=== PATIENT | male | born 1970 | race Caucasian/White ===

== ENCOUNTER 2017-06-29 12:11 | Inpatient (IN) | payer MEDICARE, MEDICAID ==
[~2017-06-29] VITALS: Ht 170.2 cm; Wt 88.1 kg
[~2017-06-29 12:11] MED LIST: ERTA1VIA IV; HYDR-3138 PO; HYDR-3240 PO; MULT-484 PO; OXYC1TAB7 PO; SENN1TAB7 PO
[2017-06-29] MEDS ORDERED: SULFAMETH./TRIMETHOPRIM DS 800MG/160MG TABLET PO ONE (13:00)
[2017-06-29] MEDS ORDERED: SODIUM CHLORIDE 0.9% 1,000ML IVBOLUS ONE ×3 (13:00→14:30)
[2017-06-29] MEDS ORDERED: CEFAZOLIN PMX 1GM/50ML 50 ML IV ONE (13:00)
[2017-06-29] MEDS ORDERED: SODIUM CHLORIDE FLUSH 10ML SYR IVF ONE (13:00)
[2017-06-29 13:09] LABS: HEMOGLOBIN 16.8 g/dL (13.7-18.0); WHITE BLOOD COUNT 14.5 x10^3/uL (3.4-10)
[2017-06-29] MEDS ORDERED: MORPHINE SULFATE 4 MG/ML, 1ML ONE ×2 (13:16→16:40)
[2017-06-29] MEDS ORDERED: SULFAMETH./TRIMETHOPRIM DS 800MG/160MG TABLET ONE (13:16)
[2017-06-29] MEDS ORDERED: CEFAZOLIN PMX 1GM/50ML 50 ML ONE (13:16)
[2017-06-29 13:21] LABS: BLOOD UREA NITROGEN 16 mg/dL (7-18)
[2017-06-29] MEDS: MORPHINE SULFATE 4 MG/ML, 1ML IV PRN ×2 (13:22→16:42)
[2017-06-29 13:25] LABS: ASPARTATE AMINO TRANSFERASE 50 U/L (15-37)
[2017-06-29] MEDS ORDERED: VANCOMYCIN 1,600 MG in SODIUM CHLORIDE 0.9% 250 ML IV ONE (14:00)
[2017-06-29] MEDS ORDERED: CEFTRIAXONE PMX 1GM/50ML 50 ML IV ONE (14:00)
[2017-06-29] MEDS ORDERED: VANCOMYCIN PER PHARMACY MC ONE (14:00)
[2017-06-29] MEDS ORDERED: DEXAMETHASONE 4 MG/ML, 1ML ONE (14:07)
[2017-06-29] MEDS ORDERED: CEFTRIAXONE PMX 1GM/50ML 50 ML ONE (14:40)
[2017-06-29] MEDS ORDERED: CLINDAMYCIN PMX 600MG/50ML 50 ML IV SCH (17:30)
[2017-06-29] MEDS ORDERED: TEMAZEPAM 15 MG CAPSULE PO PRN (17:30)
[2017-06-29] MEDS ORDERED: ONDANSETRON 2MG/ML, 2ML IVPush PRN (17:30)
[2017-06-29] MEDS ORDERED: ACETAMINOPHEN 325 MG TABLET PO PRN (17:30)
[2017-06-29] MEDS ORDERED: PHARMACY INSTRUCTION MC SCH (17:30)
[2017-06-29] MEDS ORDERED: morphine SULFATE 10 MG/ML, 1ML IVPush PRN (17:30)
[2017-06-29] MEDS: SODIUM CHLORIDE 0.9% 1,000 ML IV SCH (17:50)
[2017-06-29 17:52] VITALS: BP 106/75
[2017-06-29 18:07] LABS: DAU SCREEN DISCLAIMER
[2017-06-29] MEDS: NICOTINE 21 MG/24 HR PATCH.TD24 TD SCH (20:35)
[2017-06-29] MEDS: HYDROcodone/APAP 5/325 TABLET PO PRN (20:35)
[2017-06-29] MEDS: SULFAMETH./TRIMETHOPRIM 20 ML in DEXTROSE 5% 500 ML IV SCH (20:35)
[2017-06-29] MEDS ORDERED: SULFAMETH./TRIMETHOPRIM 20 ML in DEXTROSE 5% 500 ML IV SCH (21:00)
[2017-06-30] MEDS: HYDROcodone/APAP 5/325 TABLET PO PRN ×6 (01:29→22:38)
[2017-06-30 01:30] VITALS: BP 109/76
[2017-06-30] MEDS: SODIUM CHLORIDE 0.9% 1,000 ML IV SCH ×3 (01:30→20:13)
[2017-06-30 05:03] LABS: HEMATOCRIT 41.5 % (39.2-51.8); HEMOGLOBIN 13.9 g/dL (13.7-18.0); WHITE BLOOD COUNT 10.3 x10^3/uL (3.4-10)
[2017-06-30 05:08] LABS: ASPARTATE AMINO TRANSFERASE 55 U/L (15-37); BLOOD UREA NITROGEN 13 mg/dL (7-18)
[2017-06-30] MEDS: SULFAMETH./TRIMETHOPRIM 20 ML in DEXTROSE 5% 500 ML IV SCH ×2 (06:48→16:24)
[2017-06-30 09:06] VITALS: BP 103/64
[2017-06-30 15:18] VITALS: BP 110/71
[2017-06-30 20:14] VITALS: BP 108/74
[2017-06-30] MEDS: NICOTINE 21 MG/24 HR PATCH.TD24 TD SCH (20:39)
[2017-07-01] MEDS: SULFAMETH./TRIMETHOPRIM 20 ML in DEXTROSE 5% 500 ML IV SCH ×3 (00:35→16:50)
[2017-07-01] MEDS: HYDROcodone/APAP 5/325 TABLET PO PRN ×6 (02:05→22:51)
[2017-07-01 02:21] VITALS: BP 101/59
[2017-07-01 04:57] LABS: HEMATOCRIT 40.5 % (39.2-51.8); HEMOGLOBIN 13.4 g/dL (13.7-18.0); WHITE BLOOD COUNT 7.9 x10^3/uL (3.4-10)
[2017-07-01] MEDS: SODIUM CHLORIDE 0.9% 1,000 ML IV SCH ×2 (05:51→16:21)
[2017-07-01 07:55] VITALS: BP 98/58
[2017-07-01 13:50] VITALS: BP 110/76
[2017-07-01 19:41] VITALS: BP 108/71
[2017-07-01] MEDS: NICOTINE 21 MG/24 HR PATCH.TD24 TD SCH (22:00)
[2017-07-02] MEDS: SULFAMETH./TRIMETHOPRIM 20 ML in DEXTROSE 5% 500 ML IV SCH ×3 (00:41→16:04)
[2017-07-02] MEDS: SODIUM CHLORIDE 0.9% 1,000 ML IV SCH ×2 (00:43→14:01)
[2017-07-02] MEDS: HYDROcodone/APAP 5/325 TABLET PO PRN ×5 (03:11→20:13)
[2017-07-02 03:34] VITALS: BP 105/61
[2017-07-02 07:38] VITALS: BP 109/70
[2017-07-02 13:37] VITALS: BP 111/72
[2017-07-02 19:29] VITALS: BP 104/64
[2017-07-02] MEDS: NICOTINE 21 MG/24 HR PATCH.TD24 TD SCH (20:13)
[2017-07-03] MEDS: SODIUM CHLORIDE 0.9% 1,000 ML IV SCH ×4 (00:02→20:34)
[2017-07-03] MEDS: SULFAMETH./TRIMETHOPRIM 20 ML in DEXTROSE 5% 500 ML IV SCH ×3 (00:04→16:14)
[2017-07-03] MEDS: HYDROcodone/APAP 5/325 TABLET PO PRN ×6 (00:04→22:17)
[2017-07-03 02:22] VITALS: BP 112/70
[2017-07-03 06:30] VITALS: BP 103/64
[2017-07-03 13:29] VITALS: BP 113/66
[2017-07-03 19:23] VITALS: BP 94/61
[2017-07-03] MEDS: NICOTINE 21 MG/24 HR PATCH.TD24 TD SCH (20:34)
[2017-07-04] MEDS: SULFAMETH./TRIMETHOPRIM 20 ML in DEXTROSE 5% 500 ML IV SCH ×3 (01:06→17:37)
[2017-07-04 02:19] VITALS: BP 101/62
[2017-07-04] MEDS: HYDROcodone/APAP 5/325 TABLET PO PRN ×6 (02:27→23:48)
[2017-07-04] MEDS: SODIUM CHLORIDE 0.9% 1,000 ML IV SCH ×3 (06:15→23:48)
[2017-07-04 08:50] VITALS: BP 113/71
[2017-07-04 13:36] VITALS: BP 95/60
[2017-07-04] MEDS ORDERED: ACETAMINOPHEN 325 MG TABLET PO PRN (16:30)
[2017-07-04] MEDS ORDERED: ONDANSETRON 2MG/ML, 2ML IVPush PRN (16:30)
[2017-07-04] MEDS ORDERED: PHARMACY INSTRUCTION MC SCH (16:30)
[2017-07-04 18:54] VITALS: BP 101/58
[2017-07-04] MEDS: NICOTINE 21 MG/24 HR PATCH.TD24 TD SCH (19:35)
[2017-07-05] MEDS: SULFAMETH./TRIMETHOPRIM 20 ML in DEXTROSE 5% 500 ML IV SCH ×3 (01:09→22:47)
[2017-07-05 01:20] VITALS: BP 102/56
[2017-07-05] MEDS: morphine SULFATE 10 MG/ML, 1ML IVPush PRN ×4 (04:44→12:57)
[2017-07-05 07:30] VITALS: BP 97/61
[2017-07-05] MEDS: SODIUM CHLORIDE 0.9% 1,000 ML IV SCH ×2 (08:47→16:00)
[2017-07-05] MEDS ORDERED: LIDOCAINE 1%-EPI 1:100K, 20ML INFIL STA (11:32)
[2017-07-05] MEDS: HYDROcodone/APAP 5/325 TABLET PO PRN ×3 (12:57→22:32)
[2017-07-05 14:15] VITALS: BP 109/68
[2017-07-05 20:00] VITALS: BP 109/75
[2017-07-05] MEDS: NICOTINE 21 MG/24 HR PATCH.TD24 TD SCH (22:31)
[2017-07-06 02:00] VITALS: BP 97/60
[2017-07-06] MEDS: HYDROcodone/APAP 5/325 TABLET PO PRN ×5 (03:28→22:04)
[2017-07-06] MEDS: SULFAMETH./TRIMETHOPRIM 20 ML in DEXTROSE 5% 500 ML IV SCH ×3 (06:43→22:09)
[2017-07-06 08:13] VITALS: BP 96/62
[2017-07-06] MEDS: SODIUM CHLORIDE 0.9% 1,000 ML IV SCH ×3 (09:45→18:02)
[2017-07-06 13:51] VITALS: BP 94/56
[2017-07-06 20:24] VITALS: BP 100/61
[2017-07-06] MEDS: NICOTINE 21 MG/24 HR PATCH.TD24 TD SCH (20:30)
[2017-07-07 03:16] VITALS: BP 108/65
[2017-07-07] MEDS: HYDROcodone/APAP 5/325 TABLET PO PRN (04:28)
[2017-07-07 07:35] VITALS: BP 101/64
[2017-07-07] MEDS: SULFAMETH./TRIMETHOPRIM 20 ML in DEXTROSE 5% 500 ML IV SCH ×2 (07:35→14:49)
[2017-07-07] MEDS: SODIUM CHLORIDE 0.9% 1,000 ML IV SCH (07:35)
[2017-07-07 13:36] VITALS: BP 108/70
[2017-07-07] MEDS ORDERED: TRAM50TA2 PO (14:50)
[2017-07-07] MEDS ORDERED: NICO1PAT5 TD (14:50)
[2017-07-07] MEDS ORDERED: SULF1TAB24 PO (14:50)
[2017-07-07] MEDS ORDERED: SULFAMETH./TRIMETHOPRIM DS 800MG/160MG TABLET PO ONE (16:00)
== END 2017-07-07 15:38 | disposition home or self-care (01) | DRG 854 ==
LOC: ED 14:48 → EDIP 15:49 → 3NW 18:00 → 4NOR 07-04 15:38
PROVIDERS: ADMIT Internal Medicine; ATTEND Internal Medicine
PROC: 0JBH0ZZ Excision of Left Lower Arm Subcutaneous Tissue and Fascia, Open Approach (ICD-10-PCS; principal; 2017-07-05)
DX: A41.9 Sepsis, unspecified organism (principal); L02.414 Cutaneous abscess of left upper limb; L03.114 Cellulitis of left upper limb; T78.2XXA Anaphylactic shock, unspecified, initial encounter; B95.61 Methicillin susceptible Staphylococcus aureus infection as the cause of diseases classified elsewhere; I34.0 Nonrheumatic mitral (valve) insufficiency; Z88.0 Allergy status to penicillin; Z90.49 Acquired absence of other specified parts of digestive tract; Z86.14 Personal history of Methicillin resistant Staphylococcus aureus infection; Z72.0 Tobacco use
CPT/HCPCS: 36415; 80053; 80307; 83605; 83735; 84100; 84145; 85025; 85610; 87040; 87070; 87077; 87186; 87205; 93005; 93306; 96365; 96366; 96368; 96375; 96376; J0690; J0696; J2270; J7030; J7060

== ENCOUNTER 2019-04-22 14:00 | Inpatient (IN) | payer MEDICARE, MEDICAID ==
[~2019-04-22] VITALS: Ht 167.6 cm; Wt 97.2 kg
[~2019-04-22 14:00] MED LIST changes: +ASPI-650 PO; +ATOR40TA78 PO; +CARV3.1212 PO; +FOLI-17 PO; -HYDR-3138 PO; +HYDR-3237 PO; +HYDR50TA13 PO; +MULT1TAB60 PO; +NICO-487 TD; +SENN-177 PO; -SENN1TAB7 PO; +SULF1TAB24 PO; +THIA100T67 PO; +TRAM50TA2 PO
--- NOTE | 2019-04-22 14:28 | NUR ---
First contact with pt. Pt c/o SOB, abd swelling and swelling in bilat legts since Thursday night. Pt states just released from hospital on Thursday for same, states was following up with basket machine operator today and sent in to ED. Pt speaking in 3-4 word sentences, resp rapid but unlabored. Pt placed in gown, positioned for comfort in bed with warm blanket. Continuous heart, oxygen and BP Monitors applied, all safety measures observed.
[2019-04-22 14:47] LABS: ALBUMIN 3.4 g/dL (3.4-5.0); ANION GAP 11 mmol/L (5-15); CALCIUM 8.3 mg/dL (8.5-10.1); CHLORIDE 101 mmol/L (98-107)
[2019-04-22 14:51] LABS: BASOPHILS # (AUTO) 0.05 x10^3/uL (0-0.1); BASOPHILS % (AUTO) 0 % (0-1); EOSINOPHILS # (AUTO) 0.04 x10^3/uL (0-0.4); EOSINOPHILS % (AUTO) 0 % (1-7); LYMPHOCYTES # (AUTO) 2.35 x10^3/uL (1-3.4); LYMPHOCYTES % (AUTO) 16 % (22-44); MD NO; MEAN CORPUSCULAR HEMOGLOBIN 31.4 pg (27.5-34.5); MEAN CORPUSCULAR HGB CONC 31.8 g/dL (33.2-36.2); MEAN CORPUSCULAR VOLUME 98.7 fL (81-97); MEAN PLATELET VOLUME 8.9 fL (7.4-10.4); MONOCYTES # (AUTO) 1.24 x10^3/uL (0.2-0.8); MONOCYTES % (AUTO) 9 % (2-9); NEUTROPHILS # (AUTO) 10.67 x10^3/uL (1.8-6.8); NEUTROPHILS % (AUTO) 74 % (42-75); PLATELET COUNT 261 x10^3/uL (130-400); RED BLOOD COUNT 4.32 x10^6/uL (4.38-5.82); RED CELL DISTRIBUTION WIDTH 15.3 % (9.4-14.8)
[2019-04-22 14:52] LABS: ALANINE AMINOTRANSFERASE 295 U/L (12-78); ALKALINE PHOSPHATASE 95 U/L (45-117); BILIRUBIN,TOTAL 1.5 mg/dL (0.2-1.0); CREATININE 1.74 mg/dL (0.7-1.3); TOTAL PROTEIN 6.7 g/dL (6.4-8.2); TROPONIN I 0.053 ng/mL (0.000-0.045)
[2019-04-22] MEDS ORDERED: FUROSEMIDE 20 MG/2 ML ONE (14:59)
[2019-04-22] MEDS ORDERED: FUROSEMIDE 40 MG/4 ML IV ONE (15:00)
--- NOTE | 2019-04-22 15:18 | NUR ---
Pt medicated per MAR, denies other needs.
--- NOTE | 2019-04-22 15:58 | NUR ---
Pt given ice chips per request, denies other needs.
[2019-04-22] MEDS ORDERED: hydrOXyzine 50MG TABLET PO PRN (16:30)
[2019-04-22] MEDS ORDERED: HEPARIN 5,000 UNITS/ML, 1ML SQ SCH (16:30)
--- NOTE | 2019-04-22 16:41 | NUR ---
Report called to [facility] RN on card tele. Floor ready for pt transport.
[2019-04-22] MEDS ORDERED: FUROSEMIDE 20 MG/2 ML IV SCH ×2 (17:00→21:00)
[2019-04-22 17:08] LABS: TROPONIN I 0.049 ng/mL (0.000-0.045)
[2019-04-22 17:33] VITALS: BP 105/74
[2019-04-22] MEDS: CARVEDILOL 3.125 MG TABLET PO SCH (18:07)
[2019-04-22 18:37] LABS: MICROSCOPIC AUTO
[2019-04-22 18:43] LABS: CULTURE INDICATED? NO
[2019-04-22 19:41] VITALS: BP 110/73
[2019-04-22] MEDS: ATORVASTATIN 40 MG TABLET PO SCH (20:10)
[2019-04-22 22:58] LABS: TROPONIN I 0.059 ng/mL (0.000-0.045)
[2019-04-23 01:33] VITALS: BP 99/51
[2019-04-23 04:51] LABS: MEAN CORPUSCULAR HGB CONC 32.5 g/dL (33.2-36.2); MEAN CORPUSCULAR VOLUME 98.5 fL (81-97); MEAN PLATELET VOLUME 9.1 fL (7.4-10.4); PLATELET COUNT 258 x10^3/uL (130-400); RED BLOOD COUNT 4.27 x10^6/uL (4.38-5.82); RED CELL DISTRIBUTION WIDTH 15.3 % (9.4-14.8)
[2019-04-23 05:00] LABS: ALBUMIN 3.3 g/dL (3.4-5.0); ANION GAP 12 mmol/L (5-15); CALCIUM 8.2 mg/dL (8.5-10.1); CHLORIDE 102 mmol/L (98-107)
[2019-04-23 05:05] LABS: ALANINE AMINOTRANSFERASE 263 U/L (12-78); ALKALINE PHOSPHATASE 100 U/L (45-117); BILIRUBIN,TOTAL 1.2 mg/dL (0.2-1.0); CREATININE 1.86 mg/dL (0.7-1.3); TOTAL PROTEIN 6.7 g/dL (6.4-8.2)
[2019-04-23 05:12] LABS: BASOPHILS # (AUTO) 0.08 x10^3/uL (0-0.1); BASOPHILS % (AUTO) 1 % (0-1); EOSINOPHILS # (AUTO) 0.09 x10^3/uL (0-0.4); EOSINOPHILS % (AUTO) 1 % (1-7); LYMPHOCYTES # (AUTO) 3.15 x10^3/uL (1-3.4); LYMPHOCYTES % (AUTO) 23 % (22-44); MD SCAN; MONOCYTES # (AUTO) 0.73 x10^3/uL (0.2-0.8); MONOCYTES % (AUTO) 5 % (2-9); NEUTROPHILS # (AUTO) 9.92 x10^3/uL (1.8-6.8); NEUTROPHILS % (AUTO) 71 % (42-75)
[2019-04-23 05:42] VITALS: BP 95/66
[2019-04-23] MEDS: CARVEDILOL 3.125 MG TABLET PO SCH ×2 (05:43→17:45)
[2019-04-23] MEDS: ASPIRIN 325 MG TABLET EC PO SCH (05:43)
[2019-04-23 08:35] VITALS: BP 102/75
[2019-04-23 08:36] LABS: INTERNATIONAL NORMALIZED RATIO 1.62 (0.93-1.1); PROTHROMBIN TIME 16.7 Seconds (9.6-11.5)
[2019-04-23] MEDS: FOLIC ACID 1 MG TABLET PO SCH (09:12)
[2019-04-23] MEDS: THIAMINE 100MG TABLET PO SCH (09:12)
[2019-04-23] MEDS: MULTIVITAMIN 1 TABLET PO SCH (09:12)
[2019-04-23] MEDS: FUROSEMIDE 20 MG/2 ML IV SCH ×3 (09:12→21:42)
[2019-04-23] MEDS ORDERED: FUROSEMIDE 20 MG/2 ML IV SCH (11:00)
[2019-04-23] MEDS: DIGOXIN 0.125 MG TABLET PO SCH (11:32)
[2019-04-23 12:39] VITALS: BP 97/71
[2019-04-23 17:43] VITALS: BP 106/76
[2019-04-23 18:31] VITALS: BP 104/74
[2019-04-23] MEDS: ATORVASTATIN 40 MG TABLET PO SCH (21:42)
[2019-04-24 01:48] VITALS: BP 94/61
[2019-04-24 05:45] VITALS: BP 94/66
[2019-04-24] MEDS: CARVEDILOL 3.125 MG TABLET PO SCH ×2 (05:46→16:44)
[2019-04-24] MEDS: FUROSEMIDE 20 MG/2 ML IV SCH ×4 (05:46→21:16)
[2019-04-24] MEDS: ASPIRIN 325 MG TABLET EC PO SCH (05:46)
[2019-04-24 07:22] VITALS: BP 101/68
[2019-04-24] MEDS: THIAMINE 100MG TABLET PO SCH (07:53)
[2019-04-24] MEDS: DIGOXIN 0.125 MG TABLET PO SCH (07:53)
[2019-04-24] MEDS: FOLIC ACID 1 MG TABLET PO SCH (07:53)
[2019-04-24] MEDS: MULTIVITAMIN 1 TABLET PO SCH (07:53)
[2019-04-24 08:32] LABS: BASOPHILS # (AUTO) 0.05 x10^3/uL (0-0.1); BASOPHILS % (AUTO) 1 % (0-1); EOSINOPHILS # (AUTO) 0.14 x10^3/uL (0-0.4); EOSINOPHILS % (AUTO) 1 % (1-7); LYMPHOCYTES # (AUTO) 2.51 x10^3/uL (1-3.4); LYMPHOCYTES % (AUTO) 25 % (22-44); MD NO; MEAN CORPUSCULAR HEMOGLOBIN 31.8 pg (27.5-34.5); MEAN CORPUSCULAR HGB CONC 31.8 g/dL (33.2-36.2); MEAN PLATELET VOLUME 8.5 fL (7.4-10.4); MONOCYTES # (AUTO) 0.68 x10^3/uL (0.2-0.8); MONOCYTES % (AUTO) 7 % (2-9); NEUTROPHILS # (AUTO) 6.76 x10^3/uL (1.8-6.8); NEUTROPHILS % (AUTO) 67 % (42-75); PLATELET COUNT 249 x10^3/uL (130-400); RED BLOOD COUNT 4.28 x10^6/uL (4.38-5.82); RED CELL DISTRIBUTION WIDTH 15.5 % (9.4-14.8)
[2019-04-24 08:39] LABS: ALBUMIN 3.4 g/dL (3.4-5.0); ANION GAP 9 mmol/L (5-15); CALCIUM 8.4 mg/dL (8.5-10.1); CHLORIDE 102 mmol/L (98-107)
[2019-04-24 08:43] LABS: ALANINE AMINOTRANSFERASE 236 U/L (12-78); ALKALINE PHOSPHATASE 99 U/L (45-117); CREATININE 1.56 mg/dL (0.7-1.3); TOTAL PROTEIN 6.6 g/dL (6.4-8.2)
[2019-04-24 14:17] VITALS: BP 100/68
[2019-04-24] MEDS: FONDAPARINUX 2.5 MG/0.5 ML SQ SCH (16:48)
[2019-04-24 21:08] VITALS: BP 98/64
[2019-04-24] MEDS: ATORVASTATIN 40 MG TABLET PO SCH (21:17)
[2019-04-25 02:12] VITALS: BP 92/62
[2019-04-25] MEDS: CARVEDILOL 3.125 MG TABLET PO SCH ×2 (05:50→17:06)
[2019-04-25] MEDS: FUROSEMIDE 20 MG/2 ML IV SCH ×4 (05:50→22:06)
[2019-04-25] MEDS: ASPIRIN 325 MG TABLET EC PO SCH (05:50)
[2019-04-25 06:04] LABS: BASOPHILS # (AUTO) 0.03 x10^3/uL (0-0.1); BASOPHILS % (AUTO) 0 % (0-1); EOSINOPHILS % (AUTO) 1 % (1-7); LYMPHOCYTES # (AUTO) 1.87 x10^3/uL (1-3.4); LYMPHOCYTES % (AUTO) 21 % (22-44); MD NO; MEAN CORPUSCULAR HEMOGLOBIN 32.3 pg (27.5-34.5); MEAN CORPUSCULAR HGB CONC 32.3 g/dL (33.2-36.2); MEAN CORPUSCULAR VOLUME 100.2 fL (81-97); MEAN PLATELET VOLUME 8.6 fL (7.4-10.4); MONOCYTES # (AUTO) 0.48 x10^3/uL (0.2-0.8); MONOCYTES % (AUTO) 6 % (2-9); NEUTROPHILS # (AUTO) 6.35 x10^3/uL (1.8-6.8); NEUTROPHILS % (AUTO) 72 % (42-75); PLATELET COUNT 231 x10^3/uL (130-400); RED BLOOD COUNT 3.95 x10^6/uL (4.38-5.82); RED CELL DISTRIBUTION WIDTH 15.8 % (9.4-14.8)
[2019-04-25 06:34] LABS: ALBUMIN 3.2 g/dL (3.4-5.0); ANION GAP 8 mmol/L (5-15); CALCIUM 8.1 mg/dL (8.5-10.1); CHLORIDE 103 mmol/L (98-107)
[2019-04-25 06:42] LABS: ALANINE AMINOTRANSFERASE 200 U/L (12-78); ALKALINE PHOSPHATASE 85 U/L (45-117); BILIRUBIN,TOTAL 1.2 mg/dL (0.2-1.0); CREATININE 1.16 mg/dL (0.7-1.3); TOTAL PROTEIN 6.5 g/dL (6.4-8.2)
[2019-04-25] MEDS: MULTIVITAMIN 1 TABLET PO SCH (09:08)
[2019-04-25] MEDS: POTASSIUM CHLORIDE 20 MEQ TAB.ER.PRT PO SCH ×2 (09:08→17:06)
[2019-04-25] MEDS: FOLIC ACID 1 MG TABLET PO SCH (09:08)
[2019-04-25] MEDS: DIGOXIN 0.125 MG TABLET PO SCH (09:09)
[2019-04-25] MEDS: FONDAPARINUX 2.5 MG/0.5 ML SQ SCH (09:09)
[2019-04-25] MEDS: THIAMINE 100MG TABLET PO SCH (09:09)
[2019-04-25 09:17] VITALS: BP 106/72
[2019-04-25 14:15] VITALS: BP 98/63
[2019-04-25 19:46] VITALS: BP 92/62
[2019-04-25] MEDS: ATORVASTATIN 40 MG TABLET PO SCH (22:06)
[2019-04-26 00:37] VITALS: BP 104/71
[2019-04-26] MEDS: ASPIRIN 325 MG TABLET EC PO SCH (05:48)
[2019-04-26] MEDS: CARVEDILOL 3.125 MG TABLET PO SCH (05:48)
[2019-04-26] MEDS: FUROSEMIDE 20 MG/2 ML IV SCH (05:52)
[2019-04-26 08:19] VITALS: BP 99/68
[2019-04-26 08:26] LABS: ALBUMIN 3.3 g/dL (3.4-5.0); ANION GAP 8 mmol/L (5-15); CALCIUM 8.2 mg/dL (8.5-10.1); CHLORIDE 105 mmol/L (98-107)
[2019-04-26 08:31] LABS: ALANINE AMINOTRANSFERASE 180 U/L (12-78); ALKALINE PHOSPHATASE 87 U/L (45-117); CREATININE 1.06 mg/dL (0.7-1.3); TOTAL PROTEIN 6.6 g/dL (6.4-8.2)
[2019-04-26] MEDS ORDERED: POTA20TA6 PO (08:47)
[2019-04-26] MEDS ORDERED: FURO-93 PO (08:47)
[2019-04-26] MEDS ORDERED: DIGO125T PO (08:47)
[2019-04-26] MEDS: FONDAPARINUX 2.5 MG/0.5 ML SQ SCH (09:53)
[2019-04-26] MEDS: FOLIC ACID 1 MG TABLET PO SCH (09:53)
[2019-04-26] MEDS: THIAMINE 100MG TABLET PO SCH (09:53)
[2019-04-26] MEDS: DIGOXIN 0.125 MG TABLET PO SCH (09:53)
[2019-04-26] MEDS: POTASSIUM CHLORIDE 20 MEQ TAB.ER.PRT PO SCH (09:53)
[2019-04-26] MEDS: MULTIVITAMIN 1 TABLET PO SCH (09:53)
[2019-04-26] MEDS ORDERED: POTASSIUM CHLORIDE 20 MEQ TAB.ER.PRT PO SCH (16:00)
[2019-04-27] MEDS ORDERED: POTASSIUM CHLORIDE 20 MEQ TAB.ER.PRT PO SCH (09:00)
== END 2019-04-26 11:50 | disposition home or self-care (01) | DRG 291 ==
LOC: ED 14:20 → EDIP 15:23 → 5SO 17:28
PROVIDERS: ADMIT Internal Medicine; ATTEND Internal Medicine
DX: I13.0 Hypertensive heart and chronic kidney disease with heart failure and stage 1 through stage 4 chronic kidney disease, or unspecified chronic kidney disease (principal); I50.43 Acute on chronic combined systolic (congestive) and diastolic (congestive) heart failure; N17.9 Acute kidney failure, unspecified; E87.1 Hypo-osmolality and hyponatremia; E87.2 Acidosis; B15.9 Hepatitis A without hepatic coma; I24.8 Other forms of acute ischemic heart disease; I47.2 Ventricular tachycardia; Q21.0 Ventricular septal defect; I42.0 Dilated cardiomyopathy; Z88.0 Allergy status to penicillin; Z88.8 Allergy status to other drugs, medicaments and biological substances; B19.20 Unspecified viral hepatitis C without hepatic coma; D50.9 Iron deficiency anemia, unspecified; D63.1 Anemia in chronic kidney disease; D72.829 Elevated white blood cell count, unspecified; F15.10 Other stimulant abuse, uncomplicated; I08.1 Rheumatic disorders of both mitral and tricuspid valves; I45.81 Long QT syndrome; N18.9 Chronic kidney disease, unspecified; Z72.0 Tobacco use; R73.9 Hyperglycemia, unspecified; F41.9 Anxiety disorder, unspecified
CPT/HCPCS: 36415; 71045; 80053; 81001; 83735; 83880; 84484; 85025; 85610; 85730; 93005; 96374; 99285; G0378; J1940; J1652

== ENCOUNTER → 2019-05-04 | Outpatient (CLI) | payer MEDICARE, MEDICAID ==
[~2019-05-04] MED LIST changes: +DIGO125T PO; +FURO-93 PO; +POTA20TA6 PO
[2019-05-04 11:10] LABS: ALBUMIN 3.4 g/dL (3.4-5.0); ANION GAP 6 mmol/L (5-15); CALCIUM 8.6 mg/dL (8.5-10.1); CHLORIDE 108 mmol/L (98-107)
[2019-05-04 11:14] LABS: ALANINE AMINOTRANSFERASE 84 U/L (12-78); ALKALINE PHOSPHATASE 81 U/L (45-117); BILIRUBIN,TOTAL 1.2 mg/dL (0.2-1.0); TOTAL PROTEIN 6.8 g/dL (6.4-8.2)
== END | disposition home or self-care (01) ==
LOC: LAB 10:36
PROVIDERS: ATTEND Internal Medicine Cardiovascular Disease
DX: I34.0 Nonrheumatic mitral (valve) insufficiency (principal); I95.9 Hypotension, unspecified; I13.0 Hypertensive heart and chronic kidney disease with heart failure and stage 1 through stage 4 chronic kidney disease, or unspecified chronic kidney disease; I50.23 Acute on chronic systolic (congestive) heart failure; N18.2 Chronic kidney disease, stage 2 (mild); R94.5 Abnormal results of liver function studies; Z88.0 Allergy status to penicillin; Z88.8 Allergy status to other drugs, medicaments and biological substances
CPT/HCPCS: 36415; 80053

== ENCOUNTER 2019-05-21 00:07 | Inpatient (IN) | payer MEDICARE, MEDICAID ==
[~2019-05-21] VITALS: Ht 167.6 cm; Wt 92.3 kg
[2019-05-21] MEDS ORDERED: ASPIRIN 81 MG TABLET CHEW PO ONE (01:30)
--- NOTE | 2019-05-21 01:40 | NUR ---
Care assumed. IV access obtained and labs drawn. Pt sinus tachy on monitor. Pt anxious with rapid resp. Lung sounds clear. Pt c/o increased abd distension and sudden onset SOB. Pt states he is starting to feel a little better now that he is here. Call light in reach. Ice chips given per ERP ok.
--- NOTE | 2019-05-21 01:45 | NUR ---
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
--- NOTE | 2019-05-21 01:52 | NUR ---
Xray at bedside.
[2019-05-21 02:02] LABS: BASOPHILS # (AUTO) 0.06 x10^3/uL (0-0.1); BASOPHILS % (AUTO) 0 % (0-1); EOSINOPHILS # (AUTO) 0.02 x10^3/uL (0-0.4); EOSINOPHILS % (AUTO) 0 % (1-7); LYMPHOCYTES % (AUTO) 12 % (22-44); MD NO; MEAN CORPUSCULAR HEMOGLOBIN 32.2 pg (27.5-34.5); MEAN CORPUSCULAR HGB CONC 32.4 g/dL (33.2-36.2); MEAN CORPUSCULAR VOLUME 99.5 fL (81-97); MEAN PLATELET VOLUME 9.4 fL (7.4-10.4); MONOCYTES # (AUTO) 1.12 x10^3/uL (0.2-0.8); MONOCYTES % (AUTO) 8 % (2-9); NEUTROPHILS # (AUTO) 11.01 x10^3/uL (1.8-6.8); NEUTROPHILS % (AUTO) 80 % (42-75); PLATELET COUNT 211 x10^3/uL (130-400); RED BLOOD COUNT 4.36 x10^6/uL (4.38-5.82); RED CELL DISTRIBUTION WIDTH 15.9 % (9.4-14.8)
[2019-05-21 02:08] LABS: INTERNATIONAL NORMALIZED RATIO 1.85 (0.93-1.1)
[2019-05-21 02:10] LABS: ALBUMIN 3.9 g/dL (3.4-5.0); ANION GAP 8 mmol/L (5-15); CALCIUM 8.7 mg/dL (8.5-10.1); CHLORIDE 101 mmol/L (98-107); CREATININE 1.83 mg/dL (0.7-1.3)
[2019-05-21 02:14] LABS: TROPONIN I 0.055 ng/mL (0.000-0.045)
[2019-05-21] MEDS ORDERED: FUROSEMIDE 40 MG/4 ML IV ONE (02:30)
[2019-05-21] MEDS ORDERED: FUROSEMIDE 40 MG/4 ML ONE (02:48)
[2019-05-21] MEDS ORDERED: SPIR25TA5 PO (02:57)
--- NOTE | 2019-05-21 03:03 | NUR ---
Pt medicated per JAN. Hospitalist at bedside to [facility] for admission.
[2019-05-21 03:27] VITALS: BP 106/82
[2019-05-21] MEDS ORDERED: POLYETHYLENE GLYCOL 17 GM PACKET PO PRN (03:30)
[2019-05-21] MEDS ORDERED: hydrOXyzine 50MG TABLET PO PRN (03:30)
[2019-05-21] MEDS: CARVEDILOL 3.125 MG TABLET PO SCH ×2 (04:38→16:11)
[2019-05-21] MEDS: ASPIRIN 325 MG TABLET EC PO SCH (04:38)
[2019-05-21 07:33] VITALS: BP 108/85
[2019-05-21] MEDS: DOXYCYCLINE 100MG CAP PO SCH ×2 (09:00→20:17)
[2019-05-21] MEDS ORDERED: DOXYCYCLINE 100MG TABLET ONE (09:09)
[2019-05-21] MEDS: FUROSEMIDE 40 MG/4 ML IV SCH ×2 (09:12→16:11)
[2019-05-21] MEDS: THIAMINE 100MG TABLET PO SCH (09:12)
[2019-05-21] MEDS: FOLIC ACID 1 MG TABLET PO SCH (09:12)
[2019-05-21 09:33] LABS: TROPONIN I 0.044 ng/mL (0.000-0.045)
[2019-05-21] MEDS ORDERED: GUAIFENESIN 200 MG TABLET PO SCH (11:00)
[2019-05-21] MEDS: MULTIVITAMIN 1 TABLET PO SCH (12:00)
[2019-05-21 13:22] LABS: TROPONIN I 0.042 ng/mL (0.000-0.045)
[2019-05-21 14:04] VITALS: BP 119/82
[2019-05-21] MEDS ORDERED: DIGOXIN 0.25 MG/ML, 2ML IVPush ONE (19:30)
[2019-05-21 19:35] VITALS: BP 109/78
[2019-05-21] MEDS: ATORVASTATIN 40 MG TABLET PO SCH (20:16)
[2019-05-21] MEDS: GUAIFENESIN ER 600 MG TABLET PO SCH (20:17)
[2019-05-21] MEDS ORDERED: SIMETHICONE 80 MG CHEW TAB PO PRN (20:30)
[2019-05-22 03:59] VITALS: BP 110/73
[2019-05-22 05:54] VITALS: BP 122/78
[2019-05-22] MEDS: ASPIRIN 325 MG TABLET EC PO SCH (05:56)
[2019-05-22] MEDS: CARVEDILOL 3.125 MG TABLET PO SCH ×2 (05:56→16:53)
[2019-05-22 06:42] LABS: BASOPHILS # (AUTO) 0.03 x10^3/uL (0-0.1); BASOPHILS % (AUTO) 0 % (0-1); EOSINOPHILS # (AUTO) 0.14 x10^3/uL (0-0.4); EOSINOPHILS % (AUTO) 2 % (1-7); LYMPHOCYTES # (AUTO) 1.51 x10^3/uL (1-3.4); LYMPHOCYTES % (AUTO) 16 % (22-44); MD NO; MEAN CORPUSCULAR HEMOGLOBIN 31.6 pg (27.5-34.5); MEAN CORPUSCULAR HGB CONC 32.6 g/dL (33.2-36.2); MEAN PLATELET VOLUME 8.6 fL (7.4-10.4); MONOCYTES # (AUTO) 0.85 x10^3/uL (0.2-0.8); MONOCYTES % (AUTO) 9 % (2-9); NEUTROPHILS # (AUTO) 6.74 x10^3/uL (1.8-6.8); NEUTROPHILS % (AUTO) 73 % (42-75); PLATELET COUNT 149 x10^3/uL (130-400); RED BLOOD COUNT 3.76 x10^6/uL (4.38-5.82); RED CELL DISTRIBUTION WIDTH 15.5 % (9.4-14.8)
[2019-05-22 06:52] LABS: INTERNATIONAL NORMALIZED RATIO 1.7 (0.93-1.1); PROTHROMBIN TIME 17.5 Seconds (9.6-11.5)
[2019-05-22 06:55] LABS: ALBUMIN 3.4 g/dL (3.4-5.0); ANION GAP 8 mmol/L (5-15); CALCIUM 8.3 mg/dL (8.5-10.1); CHLORIDE 100 mmol/L (98-107)
[2019-05-22 06:59] LABS: ALANINE AMINOTRANSFERASE 74 U/L (12-78); ALKALINE PHOSPHATASE 95 U/L (45-117); BILIRUBIN,TOTAL 1.8 mg/dL (0.2-1.0); TOTAL PROTEIN 6.5 g/dL (6.4-8.2)
[2019-05-22 07:07] VITALS: BP 109/72
[2019-05-22] MEDS ORDERED: DOXYCYCLINE 100MG TABLET ONE (09:16)
[2019-05-22] MEDS: FOLIC ACID 1 MG TABLET PO SCH (09:31)
[2019-05-22] MEDS: GUAIFENESIN ER 600 MG TABLET PO SCH ×2 (09:31→20:24)
[2019-05-22] MEDS: DOXYCYCLINE 100MG CAP PO SCH ×2 (09:31→20:24)
[2019-05-22] MEDS: FUROSEMIDE 40 MG/4 ML IV SCH ×2 (09:31→16:53)
[2019-05-22] MEDS: DIGOXIN 0.125 MG TABLET PO SCH (09:31)
[2019-05-22] MEDS: THIAMINE 100MG TABLET PO SCH (09:31)
[2019-05-22 14:22] VITALS: BP 113/79
[2019-05-22] MEDS: MULTIVITAMIN 1 TABLET PO SCH (16:53)
[2019-05-22 16:54] VITALS: BP 119/82
[2019-05-22] MEDS: ATORVASTATIN 40 MG TABLET PO SCH (20:25)
[2019-05-22 21:00] VITALS: BP 113/73
[2019-05-23 01:49] VITALS: BP 99/72
[2019-05-23 05:38] LABS: BASOPHILS % (AUTO) 0 % (0-1); EOSINOPHILS # (AUTO) 0.15 x10^3/uL (0-0.4); EOSINOPHILS % (AUTO) 2 % (1-7); LYMPHOCYTES # (AUTO) 1.39 x10^3/uL (1-3.4); LYMPHOCYTES % (AUTO) 19 % (22-44); MD NO; MEAN CORPUSCULAR HEMOGLOBIN 32.5 pg (27.5-34.5); MEAN CORPUSCULAR HGB CONC 32.9 g/dL (33.2-36.2); MEAN CORPUSCULAR VOLUME 98.8 fL (81-97); MEAN PLATELET VOLUME 8.5 fL (7.4-10.4); MONOCYTES # (AUTO) 0.44 x10^3/uL (0.2-0.8); MONOCYTES % (AUTO) 6 % (2-9); NEUTROPHILS # (AUTO) 5.31 x10^3/uL (1.8-6.8); NEUTROPHILS % (AUTO) 73 % (42-75); PLATELET COUNT 169 x10^3/uL (130-400); RED BLOOD COUNT 3.79 x10^6/uL (4.38-5.82); RED CELL DISTRIBUTION WIDTH 16.2 % (9.4-14.8)
[2019-05-23 05:45] LABS: ANION GAP 5 mmol/L (5-15); CALCIUM 8.4 mg/dL (8.5-10.1); CHLORIDE 102 mmol/L (98-107)
[2019-05-23 05:46] LABS: CREATININE 1.01 mg/dL (0.7-1.3)
[2019-05-23] MEDS: CARVEDILOL 3.125 MG TABLET PO SCH ×2 (06:27→17:15)
[2019-05-23] MEDS: ASPIRIN 325 MG TABLET EC PO SCH (06:27)
[2019-05-23] MEDS: FUROSEMIDE 40 MG/4 ML IV SCH ×2 (06:30→17:15)
[2019-05-23 07:40] VITALS: BP 111/72
[2019-05-23] MEDS ORDERED: DOXYCYCLINE 100MG TABLET ONE (09:16)
[2019-05-23] MEDS: GUAIFENESIN ER 600 MG TABLET PO SCH ×2 (09:34→20:44)
[2019-05-23] MEDS: FOLIC ACID 1 MG TABLET PO SCH (09:34)
[2019-05-23] MEDS: THIAMINE 100MG TABLET PO SCH (09:34)
[2019-05-23] MEDS: DIGOXIN 0.125 MG TABLET PO SCH (09:34)
[2019-05-23] MEDS: DOXYCYCLINE 100MG CAP PO SCH ×2 (09:35→20:44)
[2019-05-23 11:09] LABS: ANION GAP 9 mmol/L (5-15); CALCIUM 8.3 mg/dL (8.5-10.1); CHLORIDE 103 mmol/L (98-107); CREATININE 1.03 mg/dL (0.7-1.3)
[2019-05-23] MEDS: SPIRONOLACTONE 25 MG TABLET PO SCH ×2 (12:30→20:44)
[2019-05-23] MEDS: MULTIVITAMIN 1 TABLET PO SCH (12:30)
[2019-05-23 14:43] VITALS: BP 96/60
[2019-05-23 20:34] VITALS: BP 103/69
[2019-05-23] MEDS: ATORVASTATIN 40 MG TABLET PO SCH (20:44)
[2019-05-23] MEDS ORDERED: POTASSIUM CHLORIDE 20 MEQ TAB.ER.PRT PO ONE (21:30)
[2019-05-24 02:34] VITALS: BP 109/71
[2019-05-24 06:19] LABS: ANION GAP 4 mmol/L (5-15); CALCIUM 8.6 mg/dL (8.5-10.1); CHLORIDE 105 mmol/L (98-107); CREATININE 0.96 mg/dL (0.7-1.3)
[2019-05-24] MEDS: ASPIRIN 325 MG TABLET EC PO SCH (06:31)
[2019-05-24] MEDS: CARVEDILOL 3.125 MG TABLET PO SCH ×2 (06:31→17:53)
[2019-05-24] MEDS: FUROSEMIDE 40 MG/4 ML IV SCH ×2 (06:31→17:53)
[2019-05-24 06:40] LABS: BASOPHILS # (AUTO) 0.04 x10^3/uL (0-0.1); BASOPHILS % (AUTO) 1 % (0-1); EOSINOPHILS # (AUTO) 0.21 x10^3/uL (0-0.4); EOSINOPHILS % (AUTO) 3 % (1-7); LYMPHOCYTES # (AUTO) 1.16 x10^3/uL (1-3.4); LYMPHOCYTES % (AUTO) 17 % (22-44); MD NO; MEAN CORPUSCULAR HEMOGLOBIN 31.5 pg (27.5-34.5); MEAN CORPUSCULAR HGB CONC 32.3 g/dL (33.2-36.2); MEAN CORPUSCULAR VOLUME 97.5 fL (81-97); MEAN PLATELET VOLUME 8.7 fL (7.4-10.4); MONOCYTES # (AUTO) 0.65 x10^3/uL (0.2-0.8); MONOCYTES % (AUTO) 9 % (2-9); NEUTROPHILS # (AUTO) 4.79 x10^3/uL (1.8-6.8); NEUTROPHILS % (AUTO) 70 % (42-75); PLATELET COUNT 165 x10^3/uL (130-400); RED BLOOD COUNT 3.78 x10^6/uL (4.38-5.82); RED CELL DISTRIBUTION WIDTH 16.1 % (9.4-14.8)
[2019-05-24 08:19] VITALS: BP 107/73
[2019-05-24] MEDS ORDERED: DOXYCYCLINE 100MG TABLET ONE (08:47)
[2019-05-24] MEDS: DOXYCYCLINE 100MG CAP PO SCH ×2 (09:00→20:08)
[2019-05-24] MEDS: FOLIC ACID 1 MG TABLET PO SCH (09:55)
[2019-05-24] MEDS: THIAMINE 100MG TABLET PO SCH (09:55)
[2019-05-24] MEDS: SPIRONOLACTONE 25 MG TABLET PO SCH ×2 (09:55→20:09)
[2019-05-24] MEDS: GUAIFENESIN ER 600 MG TABLET PO SCH ×2 (09:55→20:08)
[2019-05-24] MEDS: MULTIVITAMIN 1 TABLET PO SCH (09:56)
[2019-05-24] MEDS: DIGOXIN 0.125 MG TABLET PO SCH (09:56)
[2019-05-24 13:52] VITALS: BP 94/63
[2019-05-24 19:28] VITALS: BP 108/72
[2019-05-24] MEDS: ATORVASTATIN 40 MG TABLET PO SCH (20:08)
[2019-05-25 01:18] VITALS: BP 113/74
[2019-05-25 03:05] VITALS: BP 101/68
[2019-05-25 05:59] LABS: BASOPHILS # (AUTO) 0.02 x10^3/uL (0-0.1); BASOPHILS % (AUTO) 0 % (0-1); EOSINOPHILS # (AUTO) 0.33 x10^3/uL (0-0.4); EOSINOPHILS % (AUTO) 4 % (1-7); LYMPHOCYTES # (AUTO) 1.32 x10^3/uL (1-3.4); LYMPHOCYTES % (AUTO) 18 % (22-44); MD NO; MEAN CORPUSCULAR HEMOGLOBIN 32.1 pg (27.5-34.5); MEAN CORPUSCULAR HGB CONC 32.4 g/dL (33.2-36.2); MEAN CORPUSCULAR VOLUME 99.2 fL (81-97); MEAN PLATELET VOLUME 8.1 fL (7.4-10.4); MONOCYTES # (AUTO) 0.61 x10^3/uL (0.2-0.8); MONOCYTES % (AUTO) 8 % (2-9); NEUTROPHILS % (AUTO) 70 % (42-75); PLATELET COUNT 196 x10^3/uL (130-400); RED BLOOD COUNT 3.85 x10^6/uL (4.38-5.82)
[2019-05-25 06:21] LABS: ANION GAP 4 mmol/L (5-15); CALCIUM 8.9 mg/dL (8.5-10.1); CHLORIDE 105 mmol/L (98-107); CREATININE 1.03 mg/dL (0.7-1.3)
[2019-05-25] MEDS: ASPIRIN 325 MG TABLET EC PO SCH (06:29)
[2019-05-25] MEDS: CARVEDILOL 3.125 MG TABLET PO SCH (06:29)
[2019-05-25] MEDS: FUROSEMIDE 40 MG/4 ML IV SCH (06:29)
[2019-05-25] MEDS ORDERED: DOXYCYCLINE 100MG TABLET ONE (08:17)
[2019-05-25 08:23] VITALS: BP 110/72
[2019-05-25] MEDS: FOLIC ACID 1 MG TABLET PO SCH (08:24)
[2019-05-25] MEDS: DIGOXIN 0.125 MG TABLET PO SCH (08:25)
[2019-05-25] MEDS: SPIRONOLACTONE 25 MG TABLET PO SCH (08:25)
[2019-05-25] MEDS: THIAMINE 100MG TABLET PO SCH (08:25)
[2019-05-25] MEDS: GUAIFENESIN ER 600 MG TABLET PO SCH (08:25)
[2019-05-25] MEDS: DOXYCYCLINE 100MG CAP PO SCH (08:25)
[2019-05-25 10:20] VITALS: BP 94/65
== END 2019-05-25 13:00 | disposition left against medical advice (07) | DRG 291 ==
LOC: ED 01:18 → EDIP 02:32 → 5SO 03:14
PROVIDERS: ADMIT Family Medicine; ATTEND Family Medicine
DX: I50.43 Acute on chronic combined systolic (congestive) and diastolic (congestive) heart failure (principal); J96.00 Acute respiratory failure, unspecified whether with hypoxia or hypercapnia; I42.9 Cardiomyopathy, unspecified; R18.8 Other ascites; E87.1 Hypo-osmolality and hyponatremia; N17.9 Acute kidney failure, unspecified; D68.9 Coagulation defect, unspecified; B19.20 Unspecified viral hepatitis C without hepatic coma; I27.20 Pulmonary hypertension, unspecified; N18.2 Chronic kidney disease, stage 2 (mild); Z87.891 Personal history of nicotine dependence; Z91.14 Patient's other noncompliance with medication regimen; Z88.0 Allergy status to penicillin; Z88.8 Allergy status to other drugs, medicaments and biological substances
CPT/HCPCS: 36415; 71045; 80048; 80053; 80162; 82040; 83735; 83880; 84484; 85025; 85610; 93005; G0378; J1940; J1160

== ENCOUNTER 2019-06-05 07:24 | Emergency (ER) | payer MEDICARE, MEDICAID ==
[~2019-06-05] VITALS: Ht 167.6 cm; Wt 91.0 kg
[~2019-06-05 07:24] MED LIST changes: +SPIR25TA5 PO
[2019-06-05] MEDS ORDERED: ONDANSETRON 2MG/ML, 2ML IVPush ONE (08:00)
[2019-06-05] MEDS ORDERED: SODIUM CHLORIDE FLUSH 10ML SYR IVF ONE (08:00)
--- NOTE | 2019-06-05 08:02 | NUR ---
Labs drawn, abdominal xrays completed.
[2019-06-05 08:04] LABS: BASOPHILS # (AUTO) 0.02 x10^3/uL (0-0.1); BASOPHILS % (AUTO) 0 % (0-1); EOSINOPHILS # (AUTO) 0.39 x10^3/uL (0-0.4); EOSINOPHILS % (AUTO) 4 % (1-7); LYMPHOCYTES # (AUTO) 1.95 x10^3/uL (1-3.4); LYMPHOCYTES % (AUTO) 18 % (22-44); MD NO; MEAN CORPUSCULAR HEMOGLOBIN 30.9 pg (27.5-34.5); MEAN CORPUSCULAR HGB CONC 32.5 g/dL (33.2-36.2); MEAN CORPUSCULAR VOLUME 95.3 fL (81-97); MEAN PLATELET VOLUME 8.3 fL (7.4-10.4); MONOCYTES # (AUTO) 0.53 x10^3/uL (0.2-0.8); MONOCYTES % (AUTO) 5 % (2-9); NEUTROPHILS % (AUTO) 73 % (42-75); PLATELET COUNT 246 x10^3/uL (130-400); RED BLOOD COUNT 4.36 x10^6/uL (4.38-5.82); RED CELL DISTRIBUTION WIDTH 16.2 % (9.4-14.8)
[2019-06-05 08:12] LABS: ALANINE AMINOTRANSFERASE 34 U/L (12-78); ALBUMIN 3.7 g/dL (3.4-5.0); ANION GAP 12 mmol/L (5-15); CALCIUM 8.5 mg/dL (8.5-10.1); CHLORIDE 107 mmol/L (98-107)
[2019-06-05 08:17] LABS: ALKALINE PHOSPHATASE 98 U/L (45-117); BILIRUBIN,TOTAL 1.1 mg/dL (0.2-1.0); CREATININE 1.02 mg/dL (0.7-1.3); TOTAL PROTEIN 7.2 g/dL (6.4-8.2); TROPONIN I 0.018 ng/mL (0.000-0.045)
[2019-06-05] MEDS ORDERED: MORPHINE SULFATE 4 MG/ML, 1ML ONE ×2 (08:23→08:58)
[2019-06-05] MEDS ORDERED: ONDANSETRON 2MG/ML, 2ML ONE (08:23)
[2019-06-05] MEDS: MORPHINE SULFATE 4 MG/ML, 1ML IVPush PRN ×2 (08:25→09:01)
--- NOTE | 2019-06-05 08:55 | NUR ---
Pt placed on 2LNC for o2sat 87% on RA. Pt with shallow breathing and breath holding secondary to increasing abdominal pain.
--- NOTE | 2019-06-05 09:06 | NUR ---
Pt to CT, UA sent
--- NOTE | 2019-06-05 09:15 | NUR ---
Pt returned from CT.
[2019-06-05 09:16] LABS: MICROSCOPIC AUTO
[2019-06-05] MEDS ORDERED: OMNIPAQUE 350 MG/ML, 100ML BOTTLE ONE (09:18)
[2019-06-05 09:20] LABS: CULTURE INDICATED? NO
--- NOTE | 2019-06-05 09:46 | NUR ---
Pt reports decreased pain after second dose of morphine 6/10.
[2019-06-05] MEDS ORDERED: LIDOCAINE-MPF 1%, 5ML ONE (10:22)
--- NOTE | 2019-06-05 11:00 | NUR ---
PT IN RADIOLOGY FOR PARACENTESIS.
--- NOTE | 2019-06-05 11:14 | NUR ---
pt returned from radiology, reports feeling much better after having 4l of fluid removed during paracentesis. pt oxygen saturation 96% on RA.
--- NOTE | 2019-06-05 12:32 | NUR ---
Pt resting in bed, denies needs or concerns at this time.
--- NOTE | 2019-06-05 13:17 | NUR ---
CARE FOR DC PROVIDED. NO ACUTE DISTRESS NOTED. IV DC'D WITH CANNULA INTACT. REVIEWED DC INSTRUCTIONS WITH PT, UNDERSTANDING VERBALIZED. PT LEFT AMB, GAIT STEADY.
[2019-06-05 13:18] VITALS: BP 105/76
== END 2019-06-05 13:20 | disposition home or self-care (01) ==
LOC: ED 08:13
DX: K70.31 Alcoholic cirrhosis of liver with ascites (principal); F10.220 Alcohol dependence with intoxication, uncomplicated; I50.9 Heart failure, unspecified; Z88.0 Allergy status to penicillin
CPT/HCPCS: 36415; 49083; 74022; 74177; 80053; 80307; 81001; 83615; 83690; 83880; 84484; 85025; 87070; 87205; 89051; 93005; 96374; 96375; 96376; 99285; J2270; J2405; Q9967; 99284